=== PATIENT | male | born 1945 | race Caucasian/White ===

== ENCOUNTER 2018-04-21 10:10 | Emergency (ER) | payer MEDICARE, BC ==
--- NOTE | 2018-04-21 10:33 | ED ---
Influenza-Like Illness - HPI Summary HPI Summary: This patient is a 73 year old M presenting to [facility] accompanied by with a chief complaint of productive cough (yellow-green sputum) that began on 2018. The patient rates the pain 3/10 in severity. Symptoms aggravated by nothing. Symptoms alleviated by nothing. Patient reports chest congestion, SOB, nasal discharge, and post-nasal drip. Patient denies CP. - History of Current Complaint Chief Complaint: EDFluSymptoms Hx Obtained From: Patient Onset/Duration: Sudden Onset, Lasting Weeks, Still Present Severity: Mild - Allergy/Home Medications Allergies/Adverse Reactions: Allergies Allergy/AdvReac Type Severity Reaction Status Date / Time No Known Allergies Allergy Verified 04/21/18 10:17 Home Medications: Home Medications NK [No Home Medications Reported] 04/21/18 [History Confirmed 04/21/18] PMH/Surg Hx/FS Hx/Imm Hx Previously Healthy: No Endocrine/Hematology History: Denies: Hx Diabetes Cardiovascular History: Reports: Other Cardiovascular Problems/Disorders - Right Bundle Branch Block Denies: Hx Coronary Artery Disease Sensory History: Denies: Hx Legally Blind EENT History: Denies: Hx Deafness Infectious Disease History: No Infectious Disease History: Denies: Traveled Outside the [place] in Last 30 Days - Family History Known Family History: Positive: Cardiac Disease, Diabetes - Social History Occupation: Retired Lives: With Family Alcohol Use: Occasionally Hx Substance Use: No Substance Use Type: Reports: None Hx Tobacco Use: Yes Smoking Status (MU): Former Smoker Review of Systems Positive: Nasal Discharge, Other - Positive post-nasal drip Negative: Chest Pain Positive: Shortness Of Breath, Cough, Other - Positive chest congestion All Other Systems Reviewed And Are Negative: Yes Physical Exam - Summary Physical Exam Summary: VITAL SIGNS: Reviewed. GENERAL: Patient is a well-developed and nourished male who is lying comfortable in the stretcher. Patient is not in any acute respiratory distress. HEAD AND FACE: No signs of trauma. No ecchymosis, hematomas or skull depressions. No sinus tenderness. EYES: PERRLA, EOMI x 2, No injected conjunctiva, no nystagmus. EARS: Hearing grossly intact. Ear canals and tympanic membranes are within normal limits. MOUTH: Oropharynx within normal limits. NECK: Supple, trachea is midline, no adenopathy, no JVD, no carotid bruit, no c- spine tenderness, neck with full ROM. CHEST: Symmetric, no tenderness at palpation LUNGS: Clear to auscultation bilaterally. No wheezing or crackles. Hoarse breath sounds. CVS: Regular rate and rhythm, S1 and S2 present, no murmurs or gallops appreciated. ABDOMEN: Soft, non-tender. No signs of distention. No rebound no guarding, and no masses palpated. Bowel sounds are normal. EXTREMITIES: FROM in all major joints, no edema, no cyanosis or clubbing. NEURO: Alert and oriented x 3. No acute neurological deficits. Speech is normal and follows commands. SKIN: Dry and warm Triage Information Reviewed: Yes Vital Signs On Initial Exam: Initial Vitals Temp Pulse Resp BP Pulse Ox 97.7 F 85 16 150/78 96 04/21/18 10:14 04/21/18 10:14 04/21/18 10:14 04/21/18 10:14 04/21/18 10:14 Vital Signs Reviewed: Yes Diagnostics - Vital Signs Vital Signs Temp Pulse Resp BP Pulse Ox 04/21/18 10:14 97.7 F 85 16 150/78 96 - Laboratory Result Diagrams: 04/21/18 11:04 04/21/18 11:04 Lab Statement: Any lab studies that have been ordered have been reviewed, and results considered in the medical decision making process. - Radiology Chest XR Radiology Interpretation Completed By: Radiologist Summary of Radiographic Findings: CXR reveals, per radiologist, very mild bibasilar linear subsegmental atelectasis. No evidence for pneumonia. ED physician has reviewed this radiology report. - EKG 1032 Cardiac Rate: NL EKG Rhythm: Sinus Rhythm - 91 BPM Summary of EKG Findings: An EKG taken at 1032 reveals nml sinus rhythm at [address] elevation, ST depression in III and V4 through V6, and Q wave in III. 1053 Cardiac Rate: NL EKG Rhythm: Sinus Rhythm - 77 BPM Summary of EKG Findings: An EKG taken at 1053 reveals normal sinus rhythm at 77 BPM with positive RBBB and negative STEMI. Flu Symptom Course/Dx - Course Assessment/Plan: This patient is a 73 year old M presenting to [facility] accompanied by friend with a chief complaint of productive cough (yellow-green sputum) that began on 04/15/2018. The patient rates the pain 3/10 in severity. Symptoms aggravated by nothing. Symptoms alleviated by nothing. Patient reports chest congestion, SOB, nasal discharge, and post-nasal drip. Patient denies CP. Blood work without any significant abnormality except for sodium 131, glucose 103 and CRP of 12.01. Influenza AMB is negative. Chest x-ray shows no acute pneumonia. In the ED course the patient remained stable. I believe that the symptoms are secondary to a viral infection. I discussed all the findings and test results with the patient. Patient was instructed to return to the emergency room immediately if any of the symptoms return or worsens. Plan of care was discussed with the patient and understands and agrees. All questions were answered at patient satisfaction. There were no further complaints or concerns. Lung exam before discharge: CTA B/L. Good air exchange. No wheezing or crackles heard. CVS: S1 and S2 present. No murmurs appreciated. Patient is alert and oriented x 3. Patient is hemodynamically stable. Patient will be discharged home with follow up PCP in the next 2-3 days - Diagnoses Differential Diagnosis/HQI/PQRI: Positive: Bronchitis, Broncholiolitis, Influenza, Pneumonia, Upper Respiratory Infection Provider Diagnoses: Upper respiratory infection Discharge - Sign-Out/Discharge Documenting (check all that apply): Patient Departure - Discharge home - Discharge Plan Condition: Stable Disposition: HOME Patient Education Materials: Upper Respiratory Infection (ED) Referrals: [facility] [Outside] - 3 Days Additional Instructions: RETURN TO THE EMERGENCY DEPARTMENT FOR NEW OR WORSENING SYMPTOMS - Billing Disposition and Condition Condition: STABLE Disposition: Home - Attestation Statements Document Initiated by Date: Yes Documenting Scribe: Lucita Blas Provider For Whom Tavo is Documenting (Include Credential): Dr. Mak Espinosa MD Scribe Attestation: ILucita, scribed for Dr. Mak Espinosa MD on 04/22/18 at 2047. Scribe Documentation Reviewed: Yes Provider Attestation: The documentation as recorded by the Lucita painting accurately reflects the service I personally performed and the decisions made by me, Dr. Mak Espinosa MD Status of Scribe Document: Viewed
[2018-04-21 11:14] LABS: ABS Basophils 0 10^3/ul (0-0.2); ABS Eosinophils 0.2 10^3/ul (0-0.6); ABS Lymphocytes 0.9 10^3/ul (1.0-4.8); ABS Monocytes 0.6 10^3/ul (0-0.8); ABS Neutrophils 5.8 10^3/ul (1.5-7.7); ABS Nucleated RBC 0 10^3/ul; Eosinophil % 3.2 %; Hematocrit 46 % (42-52); Hemoglobin 15.3 g/dl (14.0-18.0); Lymphocyte % 11.9 %; Mean Corpuscular HGB Conc 33 g/dl (31-36); Mean Corpuscular Hemoglobin 31 pg (27-31); Mean Corpuscular Volume 92 fL (80-94); Mean Platelet Volume 8.5 fL (7.4-10.4); Nucleated Red Blood Cells % 0; Platelet Count 188 10^3/ul (150-450); Red Blood Count 5.03 10^6/ul (4.00-5.40); Red Cell Distribution Width 14 % (10.5-15); White Blood Count 7.7 10^3/ul (3.5-10.8)
[2018-04-21 11:34] LABS: Albumin 3.8 g/dL (3.2-5.2); Albumin/Globulin Ratio 1.1 (1-3); BUN/Creatinine Ratio 16.2 (8-20); C Reactive Protein 12.01 mg/L (<8.01); Calcium 8.7 mg/dL (8.6-10.3); EGFR Non-African American 69.6 (>60); Globulin 3.6 g/dL (2-4); Potassium 4.1 mmol/L (3.5-5.0); Total Bilirubin 0.5 mg/dL (0.2-1.0); Total Protein 7.4 g/dL (6.4-8.9)
[2018-04-21 12:23] VITALS: BP 112/79
== END 2018-04-21 12:23 | disposition home or self-care (01) ==
LOC: ED 10:10
DX: J06.9 Acute upper respiratory infection, unspecified (principal); I45.10 Unspecified right bundle-branch block; Z87.891 Personal history of nicotine dependence
CPT/HCPCS: 36415; 71046; 80053; 82550; 83605; 84484; 85025; 86140; 93005; 99282

== ENCOUNTER 2019-06-01 18:28 | Emergency (ER) | payer MEDICARE, BC ==
[2019-06-01] MEDS ORDERED: Acetaminophen TAB* 325 MG PO ONE (18:54)
--- NOTE | 2019-06-01 18:57 | ED ---
Influenza-Like Illness - HPI Summary HPI Summary: 74 male presents with flulike illness for the past day. He admits to fever and a productive cough. Denies any chest pain. He admits to occasional shortness breath when he coughs. He has a daughter who has the flu. He denies any increased swelling to his legs. No change in weight. Does not have a history of CHF, asthma or copd. Has no medical conditions. He denies any bowel pain. No nausea or vomiting. he admits to headache and sinus congestion. Has been taking aspirin for the fever. - History of Current Complaint Chief Complaint: EDFluSymptoms Time Seen by Provider: 06/01/19 18:38 - Allergy/Home Medications Allergies/Adverse Reactions: Allergies Allergy/AdvReac Type Severity Reaction Status Date / Time No Known Allergies Allergy Verified 06/01/19 18:33 PMH/Surg Hx/FS Hx/Imm Hx Endocrine/Hematology History: Denies: Hx Diabetes Cardiovascular History: Reports: Other Cardiovascular Problems/Disorders - Right Bundle Branch Block Denies: Hx Coronary Artery Disease Sensory History: Denies: Hx Legally Blind, Hx Deafness Opthamlomology History: Denies: Hx Legally Blind - Immunization History Date of Influenza Vaccine: 2019 Infectious Disease History: No Infectious Disease History: Denies: Traveled Outside the [place] in Last 30 Days - Family History Known Family History: Positive: Cardiac Disease, Diabetes - Social History Alcohol Use: Occasionally Hx Substance Use: No Substance Use Type: Reports: None Hx Tobacco Use: Yes Smoking Status (MU): Former Smoker Review of Systems Positive: Fever Negative: Chest Pain Positive: Shortness Of Breath, Cough Negative: Abdominal Pain, Nausea All Other Systems Reviewed And Are Negative: Yes Physical Exam Triage Information Reviewed: Yes Vital Signs On Initial Exam: Initial Vitals Temp Pulse Resp BP Pulse Ox 101.3 F 92 19 176/93 96 06/01/19 18:31 06/01/19 18:31 06/01/19 18:31 06/01/19 18:31 06/01/19 18:31 Vital Signs Reviewed: Yes Appearance: Positive: Well-Appearing Skin: Positive: Warm, Dry Head/Face: Positive: Normal Head/Face Inspection Eyes: Positive: Normal, EOMI, ODIN, Conjunctiva Clear ENT: Positive: Pharynx normal, TMs normal Respiratory/Lung Sounds: Positive: Clear to Auscultation, Breath Sounds Present Cardiovascular: Positive: Normal, RRR Abdomen Description: Positive: Nontender, Soft Bowel Sounds: Positive: Present Musculoskeletal: Positive: Normal Neurological: Positive: Normal Psychiatric: Positive: Normal Procedures - Sedation Patient Received Moderate/Deep Sedation with Procedure: No Diagnostics - Vital Signs Vital Signs Temp Pulse Resp BP Pulse Ox 06/01/19 18:53 100.4 F 06/01/19 18:31 101.3 F 92 19 176/93 96 - Laboratory Lab Results: Lab Results 06/01/19 Range/Units 18:44 Influenza A (Rapid) Pending Influenza B (Rapid) Pending Result Diagrams: 06/01/19 19:02 06/01/19 19:02 Lab Statement: Any lab studies that have been ordered have been reviewed, and results considered in the medical decision making process. - Radiology chest Radiology Interpretation Completed By: ED Physician Summary of Radiographic Findings: no active disease - EKG No standard instances Cardiac Rate: NL EKG Rhythm: Sinus Rhythm EKG Comparison: No Significant Change Summary of EKG Findings: sinus rhythm Flu Symptom Course/Dx - Course Course Of Treatment: 74 male presents with flulike illness for the past day. He admits to fever and a productive cough. Denies any chest pain. He admits to occasional shortness breath when he coughs. He has a daughter who has the flu. He denies any increased swelling to his legs. No change in weight. Does not have a history of CHF, asthma or copd. Has no medical conditions. He denies any bowel pain. No nausea. or vomiting. he admits to headache and sinus congestion. Has been taking aspirin for the fever. On exam lungs CTA. Abdomen soft nontender. Pharynx normal. Flu is negative. wbc normal. BMP troponin are normal. EKG shows sinus rhythm. Chest x-ray shows no pneumonia. Discussed is requesting Tamiflu due to patient being around daughter who has the flu. We'll place on Tamiflu. Patient understands agrees plan. - Diagnoses Differential Diagnosis/HQI/PQRI: Positive: Bronchitis, Influenza, Upper Respiratory Infection Provider Diagnoses: Viral syndrome Discharge ED - Sign-Out/Discharge Documenting (check all that apply): Patient Departure - Discharge Plan Condition: Good Disposition: HOME Prescriptions: Benzonatate CAP* [Tessalon 100 MG CAP*] 100 mg PO TID #15 cap Oseltamivir CAP* [Tamiflu CAP*] 75 mg PO BID #9 cap Patient Education Materials: Viral Syndrome (ED) Referrals: Chris Cantor, [Primary Care Provider] - Additional Instructions: Take Tamiflu twice for 5 days first dose given in ED take tessalon three times a day for cough Take Tylenol for muscle aches and fever every 6 hours Saline rinse can be used multiple times a day for nasal congestion Drink plenty of fluids Follow up with primary within 5 days Return to ED if develop any new or worsening symptoms - Billing Disposition and Condition Condition: GOOD Disposition: Home - Attestation Statements Provider Attestation: I was available for consultation for this patient. I did not evaluate the patient or participate in any medical decision making or disposition decisions unless I am specifically named in the chart as having consulted on the patient. If I have consulted on the patient, please see my own ED note on the patient encounter. Radha Porter MD
[2019-06-01 19:12] LABS: ABS Eosinophils 0.2 10^3/ul (0-0.6); ABS Lymphocytes 0.6 10^3/ul (1.0-4.8); ABS Monocytes 0.6 10^3/ul (0-0.8); ABS Neutrophils 5.8 10^3/ul (1.5-7.7); Eosinophil % 2.5 %; Hematocrit 43 % (42-52); Hemoglobin 14.7 g/dL (14.0-18.0); Mean Corpuscular HGB Conc 35 g/dL (31-36); Mean Corpuscular Hemoglobin 32 pg (27-31); Mean Corpuscular Volume 94 fL (80-94); Mean Platelet Volume 8.5 fL (7.4-10.4); Nucleated Red Blood Cells % 0.1; Platelet Count 197 10^3/uL (150-450); Red Blood Count 4.53 10^6 /uL (4.18-5.48); Red Cell Distribution Width 14 % (10-15); White Blood Count 7.2 10^3/uL (3.5-10.8)
[2019-06-01 19:15] LABS: Influenza A Molecular Negative (Negative); Influenza B Molecular Negative (Negative)
[2019-06-01 19:32] VITALS: BP 140/81
[2019-06-01 19:45] LABS: Albumin 3.9 g/dL (3.2-5.2); BUN/Creatinine Ratio 21.1 (8-20); C Reactive Protein 11.46 mg/L (<8.01); Calcium 8.6 mg/dL (8.6-10.3); EGFR African American 76.4 (>60); EGFR Non-African American 63.1 (>60); Globulin 3.8 g/dL (2-4); Total Bilirubin 0.4 mg/dL (0.2-1.0); Total Protein 7.7 g/dL (6.4-8.9)
[2019-06-01] MEDS ORDERED: Benzonatate CAP* 100 MG PO ONE (19:48)
[2019-06-01] MEDS ORDERED: Oseltamivir CAP* 75 MG CAP PO ONE (19:48)
== END 2019-06-01 20:04 | disposition home or self-care (01) ==
LOC: ED 18:28
DX: B34.9 Viral infection, unspecified (principal); R50.9 Fever, unspecified; R06.02 Shortness of breath; Z87.891 Personal history of nicotine dependence
CPT/HCPCS: 36415; 71046; 80053; 83605; 83880; 84484; 85025; 86140; 93005; 99283; A9270-GY

== ENCOUNTER 2020-04-03 10:14 | Observation (INO) ==
[2020-04-03] MEDS ORDERED: NS 0.9% 1000 ml BAG 1,000 ML IV ONE (12:16)
[2020-04-03 12:35] LABS: ABS Eosinophils 0.2 10^3/ul (0-0.6); ABS Lymphocytes 1.5 10^3/ul (1.0-4.8); ABS Monocytes 0.6 10^3/ul (0-0.8); ABS Neutrophils 4.7 10^3/ul (1.5-7.7); Eosinophil % 2.5 %; Hematocrit 45 % (42-52); Hemoglobin 15.1 g/dL (14.0-18.0); Lymphocyte % 20.8 %; Mean Corpuscular HGB Conc 34 g/dL (31-36); Mean Corpuscular Hemoglobin 32 pg (27-31); Mean Corpuscular Volume 95 fL (80-94); Mean Platelet Volume 9.1 fL (7.4-10.4); Platelet Count 234 10^3/uL (150-450); Red Blood Count 4.78 10^6 /uL (4.18-5.48); Red Cell Distribution Width 14 % (10-15)
[2020-04-03 12:46] LABS: Albumin 3.8 g/dL (3.2-5.2); BUN/Creatinine Ratio 22.3 (8-20); Calcium 9.3 mg/dL (8.6-10.3); EGFR African American 65.5 (>60); EGFR Non-African American 54.1 (>60); Magnesium 2.2 mg/dL (1.9-2.7); Total Bilirubin 0.4 mg/dL (0.2-1.0); Total Protein 7.8 g/dL (6.4-8.9)
[2020-04-03 12:48] LABS: Troponin I 0.01 ng/mL (<0.03)
[2020-04-03] MEDS ORDERED: Iodixanol (CONTRAST) 320 MG/ML 100 ML SDV IV ONE (12:51)
[2020-04-03 13:48] LABS: Potassium 4.4 mmol/L (3.5-5.0)
[2020-04-03] MEDS ORDERED: Ondansetron 4 mg VIAL 2 MG/ML 2 ml VIAL IV PRN (14:40)
[2020-04-03] MEDS ORDERED: Al Hydrox/Mg Hydrox/Simet LIQ 30 ML UDC PO PRN (14:40)
[2020-04-03] MEDS ORDERED: Enoxaparin 40 MG/0.4 ML SYR SUBCUT SCH (18:00)
[2020-04-04 06:36] LABS: BUN/Creatinine Ratio 22.2 (8-20); Calcium 8.8 mg/dL (8.6-10.3); EGFR African American 73.9 (>60); EGFR Non-African American 61.1 (>60); HDL Cholesterol 42.2 mg/dL; Potassium 4.5 mmol/L (3.5-5.0)
[2020-04-04 11:46] VITALS: BP 141/78
== END 2020-04-04 14:48 | disposition home or self-care (01) ==
LOC: ED 10:14 → MEDTELE 10:14
PROVIDERS: ADMIT Pediatrics; ATTEND Pediatrics